=== PATIENT | female | born 1980 | race African-American/Black ===

== ENCOUNTER 2017-02-18 08:12 | Emergency (ER) | payer OTHER ==
[~2017-02-18] VITALS: Ht 152.4 cm; Wt 68.0 kg
[~2017-02-18 08:12] MED LIST: AZIT250T6 PO; BENZ100C PO; PRED50TA PO; VENTOLIN HFA18 GM INH
[2017-02-18 08:21] VITALS: BP 172/93
[2017-02-18] MEDS ORDERED: VENTOLIN HFA18 GM INH (08:31)
[2017-02-18] MEDS ORDERED: AZIT250T6 PO (08:31)
[2017-02-18] MEDS ORDERED: BENZ100C PO (08:31)
[2017-02-18] MEDS ORDERED: PRED50TA PO (08:31)
--- NOTE | 2017-02-18 08:31 | PHYS DOC ---
Past Medical History Past Medical History: No Pertinent History, Bronchitis Past Surgical History: No Surgical History Alcohol Use: None Drug Use: None Adult General Chief Complaint Chief Complaint: COUGH HPI HPI Patient is a 37 year old female presents to the ED complaining of cough x 1.5 weeks. States it started out as a sore throat but now she is coughing and has congestion. Complains of subjective fever. No PMHx. States similar symptoms in the past resolved when treated in this ED with antibiotics and prednisone. Denies chest pain, shortness of breath, dizziness, weakness, n/v, headache, abdominal pain or rash. Review of Systems Review of Systems Constitutional: Denies fever or chills [] Eyes: Denies change in visual acuity, redness, or eye pain [] HENT: Complains of nasal congestion or sore throat [] Respiratory: Complains of cough. Denies shortness of breath [] Cardiovascular: No additional information not addressed in HPI [] GI: Denies abdominal pain, nausea, vomiting, bloody stools or diarrhea [] : Denies dysuria or hematuria [] Musculoskeletal: Denies back pain or joint pain [] Integument: Denies rash or skin lesions [] Neurologic: Denies headache, focal weakness or sensory changes [] Endocrine: Denies polyuria or polydipsia [] All other systems were reviewed and found to be within normal limits, except as documented in this note. Allergies Allergies Allergies Coded Allergies Type Severity Reaction Last Updated Verified No Known Drug Allergies 10/19/15 No Physical Exam Physical Exam Constitutional: Well developed, well nourished, no acute distress, non-toxic appearance. [] HENT: Normocephalic, atraumatic, bilateral external ears normal, oropharynx moist, MILD PHARYNGEAL ERYTHEMA. no oral exudates, nose normal. [] Eyes: PERRLA, EOMI, conjunctiva normal, no discharge. [] Neck: Normal range of motion, no tenderness, supple, no stridor. [] Cardiovascular:Heart rate regular rhythm, no murmur [] Lungs & Thorax: Bilateral breath sounds clear to auscultation [] Abdomen: Bowel sounds normal, soft, no tenderness, no masses, no pulsatile masses. [] Skin: Warm, dry, no erythema, no rash. [] Back: No tenderness, no CVA tenderness. [] Extremities: No tenderness, no cyanosis, no clubbing, ROM intact, no edema. [] Neurologic: Alert and oriented X 3, normal motor function, normal sensory function, no focal deficits noted. [] Psychologic: Affect normal, judgement normal, mood normal. [] Current Patient Data Vital Signs Vital Signs Date Time Temp Pulse Resp B/P (MAP) Pulse Ox O2 Delivery O2 Flow Rate FiO2 02/18/17 08:21 99.0 88 20 98 Room Air 99.0 EKG EKG [] Radiology/Procedures Radiology/Procedures [] Course & Med Decision Making Course & Med Decision Making Pertinent Labs and Imaging studies reviewed. (See chart for details) []Will treat patient with same medicines that alleviated patients symptoms on previous visit. Vitals stable, NAD. Discussed follow-up and reasons to return to the ED. Patient understands and agrees with plan. Dragon Disclaimer Dragon Disclaimer This electronic medical record was generated, in whole or in part, using a voice recognition dictation system. Departure Departure Impression: Primary Impression: Bronchitis Disposition: 01 HOME, SELF-CARE Condition: STABLE Referrals: NO PCP (PCP) WILLY DOVER MD Patient Instructions: Acute Bronchitis Scripts Albuterol Sulfate (VENTOLIN HFA INHALER) 18 Gm Hfa.aer.ad 2 PUFF INH Q4HRS for FOR ASTHMA, #1 INHALER 0 Refills Prov: BARBARA BONE 02/18/17 Prednisone (PREDNISONE) 50 Mg Tablet 50 MG PO DAILY, #5 TAB Prov: BARBARA BONE 02/18/17 Benzonatate (TESSALON PERLE) 100 Mg Capsule 100 MG PO TID Y for COUGH, #21 CAP Prov: BARBARA BONE 02/18/17 Azithromycin (AZITHROMYCIN TABLET) 250 Mg Tablet 1 PKG PO UD, #6 TAB Prov: BARBARA BONE 02/18/17 BARBARA BONE Feb 18, 2017 08:31
== END 2017-02-18 08:40 | disposition home or self-care (01) ==
LOC: ER 08:12
DX: J40 Bronchitis, not specified as acute or chronic (principal)
CPT/HCPCS: 99283

== ENCOUNTER 2017-02-24 01:07 | Emergency (ER) | payer OTHER ==
[~2017-02-24] VITALS: Ht 152.4 cm; Wt 68.0 kg
[2017-02-24] MEDS ORDERED: IV NORMAL SALINE 1000ML BAG 1,000 ML IV ONE (01:30)
[2017-02-24 01:39] LABS: BILIRUBIN,URINE NEGATIVE (NEG); GLUCOSE,URINE 100 mg/dL (NEG); NITRITE,URINE NEGATIVE (NEG); PROTEIN,URINE NEGATIVE (NEG-TRACE); UROBILINOGEN,URINE 0.2 mg/dL (0.2 mg/dL)
[2017-02-24] MEDS ORDERED: METOCLOPRAMIDE HCL 10 MG/2 ML VIAL. IV ONE (01:45)
[2017-02-24] MEDS ORDERED: diphenhydrAMINE 50 MG/ML VIAL IVP ONE (01:45)
[2017-02-24] MEDS ORDERED: DEXAMETHASONE SOD PHOS 4 MG/ML VIAL IV ONE (01:45)
[2017-02-24 01:47] LABS: BACTERIA,URINE MODERATE /HPF (0-FEW); SQUAMOUS EPITHELIAL CELL,UR MOD /LPF
[2017-02-24 01:51] LABS: BASO # 0.1 x10^3/uL (0.0-0.2); BASO % 1 % (0-3); EOS % 1 % (0-3); HEMATOCRIT 40.8 % (36.0-47.0); HEMOGLOBIN 13.5 g/dL (12.0-15.5); LYMPH # 2.2 x10^3/uL (1.0-4.8); LYMPH % 20 % (24-48); MEAN CORPUSCULAR HEMOGLOBIN 30 pg (25-35); MEAN CORPUSCULAR HGB CONC 33 g/dL (31-37); MEAN CORPUSCULAR VOLUME 89 fL (79-100); MONO % 9 % (0-9); NEUT % 69 % (31-73); PLATELET COUNT 316 x10^3/uL (140-400); RED BLOOD COUNT 4.59 x10^6/uL (3.50-5.40); RED CELL DISTRIBUTION WIDTH 14.7 % (11.5-14.5)
[2017-02-24 01:57] LABS: CALCIUM 9.3 mg/dL (8.5-10.1); CREATININE 0.6 mg/dL (0.6-1.0); GFR 136.9; POTASSIUM 3.1 mmol/L (3.5-5.1)
--- NOTE | 2017-02-24 02:03 | RAD ---
CT head without contrast: Reason for examination: Headache. Axial images were obtained through the brain. No contrast was administered. Exposure: One or more of the following individualized dose reduction techniques were utilized for this examination: 1. Automated exposure control 2. Adjustment of the mA and/or kV according to patient size 3. Use of iterative reconstruction technique. Ventricular systems are symmetric and not dilated. No midline shift is seen. There is no evidence of intracranial hemorrhage, infarct, mass or edema. No abnormalities are seen at the orbits. There is some mild mucosal disease in ethmoid air cells. Remaining paranasal sinuses are clear. Mastoid air cells are clear. No acute abnormality seen in the skull. IMPRESSION: No acute intracranial abnormality evident. Mild mucosal thickening in the ethmoid air cells. Electronically signed by: Ally Lomas MD (02/24/2017 2:00 AM) [facility]
--- NOTE | 2017-02-24 02:04 | PHYS DOC ---
Past Medical History Past Medical History: Bronchitis Past Surgical History: No Surgical History Alcohol Use: None Drug Use: None Adult General Chief Complaint Chief Complaint: MULTIPLE COMPLAINTS HPI HPI Patient is a 37 year old F who presents with headache and nausea vomiting for the past 2 days. Patient states her headache was gradual in onset and has progressively gotten worse over the past 2 days. Patient denies any fevers. Patient states she's been taking Advil for the headache. Patient states she has associated nausea and vomiting with a headache. Patient declines any vision changes. Patient declines any neck pain or neck stiffness. Patient declines any chest pain or shortness of breath. Patient has no other complaints. Review of Systems Review of Systems GEN: Headache HEENT: Denies blurred vision, sore throat CV: Denies chest pain RESP: Denies shortness of air, cough GI: Nausea and vomiting NEURO: Denies confusion, dizziness MSK: Denies weakness, joint pain/swelling All other systems were reviewed and found to be within normal limits, except as documented in this note. Current Medications Current Medications Current Medications Medications (Trade) Dose Ordered Sig/Maya Start Time Stop Time Status Last Admin Dose Admin Dexamethasone Sodium Phosphate (Decadron) 10 mg 1X ONCE 02/24/17 01:45 02/24/17 01:46 DC 02/24/17 01:59 10 MG Diphenhydramine HCl (Benadryl) 50 mg 1X ONCE 02/24/17 01:45 02/24/17 01:46 DC 02/24/17 02:00 50 MG Haloperidol Lactate (Haldol) 5 mg 1X ONCE 02/24/17 03:00 02/24/17 03:01 DC 02/24/17 02:54 5 MG Ketorolac Tromethamine (Toradol) 30 mg 1X ONCE 02/24/17 02:30 02/24/17 02:31 DC 02/24/17 02:26 30 MG Metoclopramide HCl (Reglan Vial) 10 mg 1X ONCE 02/24/17 01:45 02/24/17 01:46 DC 02/24/17 02:00 10 MG Sodium Chloride 1,000 ml @ 1,000 mls/hr 1X ONCE 02/24/17 01:30 02/24/17 02:29 DC 02/24/17 01:59 1,000 MLS/HR Allergies Allergies Allergies Coded Allergies Type Severity Reaction Last Updated Verified No Known Drug Allergies 10/19/15 No Physical Exam Physical Exam GEN.: Mild distress. Alert and oriented. HEENT: Head is normocephalic, atraumatic, pupils are equal and reactive bilaterally, extraocular ocular muscles were intact bilaterally NECK: Supple, no meningeal signs, no cervical lymphadenopathy LUNGS: CTAB. HEART: RRR, S1, S2 present. Peripheral pulses intact ABDOMEN: Soft, nontender. Positive bowel sounds. EXTREMITIES: Without any cyanosis. NEUROLOGIC: Normal speech, normal tone, cranial nerves II through XII are grossly intact without any focal neurological deficits PSYCHIATRIC: Normal affect, normal mood. SKIN: No ulcerations Current Patient Data Vital Signs Vital Signs Date Time Temp Pulse Resp B/P (MAP) Pulse Ox O2 Delivery O2 Flow Rate FiO2 02/24/17 02:50 78 16 117/66 (83) 99 Room Air 02/24/17 01:20 98.4 98.4 Lab Values Laboratory Tests Test 02/24/17 01:15 02/24/17 01:40 Urine Collection Type Unknown Urine Color Yellow Urine Clarity Clear Urine pH 6.0 Urine Specific [place] 1.025 Urine Protein Negative mg/dL (NEG-TRACE) Urine Glucose (UA) 100 mg/dL (NEG) Urine Ketones (Stick) Negative mg/dL (NEG) Urine Blood Small (NEG) Urine Nitrite Negative (NEG) Urine Bilirubin Negative (NEG) Urine Urobilinogen Dipstick 0.2 mg/dL (0.2 mg/dL) Urine Leukocyte Esterase Negative (NEG) Urine RBC 11-20 /HPF (0-2) Urine WBC 5-10 /HPF (0-4) Urine Squamous Epithelial Cells Mod /LPF Urine Bacteria Moderate /HPF (0-FEW) Urine Mucus Marked /LPF Urine Test Negative (NEG) White Blood Count 11.0 x10^3/uL (4.0-11.0) Red Blood Count 4.59 x10^6/uL (3.50-5.40) Hemoglobin 13.5 g/dL (12.0-15.5) Hematocrit 40.8 % (36.0-47.0) Mean Corpuscular Volume 89 fL (79-100) Mean Corpuscular Hemoglobin 30 pg (25-35) Mean Corpuscular Hemoglobin Concent 33 g/dL (31-37) Red Cell Distribution Width 14.7 % (11.5-14.5) H Platelet Count 316 x10^3/uL (140-400) Neutrophils (%) (Auto) 69 % (31-73) Lymphocytes (%) (Auto) 20 % (24-48) L Monocytes (%) (Auto) 9 % (0-9) Eosinophils (%) (Auto) 1 % (0-3) Basophils (%) (Auto) 1 % (0-3) Neutrophils # (Auto) 7.6 x10^3uL (1.8-7.7) Lymphocytes # (Auto) 2.2 x10^3/uL (1.0-4.8) Monocytes # (Auto) 1.0 x10^3/uL (0.0-1.1) Eosinophils # (Auto) 0.1 x10^3/uL (0.0-0.7) Basophils # (Auto) 0.1 x10^3/uL (0.0-0.2) Sodium Level 138 mmol/L (136-145) Potassium Level 3.1 mmol/L (3.5-5.1) L Chloride Level 101 mmol/L (98-107) Carbon Dioxide Level 27 mmol/L (21-32) Anion Gap 10 (6-14) Blood Urea Nitrogen 10 mg/dL (7-20) Creatinine 0.6 mg/dL (0.6-1.0) Estimated GFR (Cockcroft-Gault) 136.9 Glucose Level 150 mg/dL (70-99) H Calcium Level 9.3 mg/dL (8.5-10.1) Laboratory Tests 02/24/17 01:40 Laboratory Tests 02/24/17 01:40 EKG EKG [] Radiology/Procedures Radiology/Procedures CT scan of the headL IMPRESSION: No acute intracranial abnormality evident. Mild mucosal thickening in the ethmoid air cells.[] Course & Med Decision Making Course & Med Decision Making Pertinent Labs and Imaging studies reviewed. (See chart for details) ED course: Patient was seen and examined emergency room basic blood work along with a CT scan of the head without contrast and UA were ordered 0215: Patient was reevaluated in which she was still having slight headache updated patient on CT findings and lab results and plan to treat for UTI. Since the CT scan of the head showed no acute intracranial hemorrhage patient will be given IV Toradol. Discussed pain management at home with the patient and recommended [id number] pain medication and further follow-up with her PCP for further pain management. 0322: Patient is pain-free and ready go home. MDM: After reviewing the chart, CC/HPI/PMH, physical exam, [lab results], [ radiological results], I do not believe the patient has a severe bacterial infection or severe intracranial process warranting further workup and/or admission at this time. I have a low suspicion for thoracic hemorrhage or meningitis. On rehydration the patient has improved and I think the patient is stable be discharged home with antibiotic treatment for her UTI and short-term follow-up with PCP. Additional verbal discharge instructions were provided to the patient and that if symptoms get worse or any new symptoms arise that are worrisome to the patient she is to return to the emergency room immediately [] Dragon Disclaimer Dragon Disclaimer This electronic medical record was generated, in whole or in part, using a voice recognition dictation system. Departure Departure Impression: Primary Impression: UTI (urinary tract infection) Additional Impression: Headache Disposition: 01 HOME, SELF-CARE Condition: IMPROVED Referrals: NO PCP (PCP) Patient Instructions: General Headache Without Cause, Urinary Tract Infection, Agbo-to-Fmtr Additional Instructions: Please follow-up with your family physician in the next one to 2 days return if symptoms increase Scripts Cephalexin (KEFLEX) 500 Mg Capsule 1 CAP PO TID for 10 Days, #30 CAP Prov: NEY REAGAN DO 02/24/17 Problem Qualifiers NEY REAGAN DO Feb 24, 2017 02:04
[2017-02-24 02:09] LABS: NEG OBC UR NEG; POS OBC UR POS
[2017-02-24] MEDS ORDERED: KETOROLAC 30 MG/ML INJ. IV ONE (02:30)
[2017-02-24] MEDS ORDERED: CEPH-264 PO (02:39)
[2017-02-24] MEDS ORDERED: HALOPERIDOL LACTATE 5 MG/ML VIAL. IVP ONE (03:00)
[2017-02-24 03:30] VITALS: BP 110/58
== END 2017-02-24 03:30 | disposition home or self-care (01) ==
LOC: ER 01:07
DX: N39.0 Urinary tract infection, site not specified (principal); R51 Headache
CPT/HCPCS: 36415; 70450; 80048; 81001; 81025; 85025; 87086; 96361; 96374; 96375; 99285; J1100; J1200; J1630; J1885; J2765; J7030